=== PATIENT | male | born 1970 | race Caucasian/White ===

== ENCOUNTER → 2017-04-07 | Outpatient (CLI) | payer OTHER, MEDICAID ==
[~2017-04-07] MED LIST: ACETAMINOPHEN325 M1 PO; ALBUTEROL NEB INH; ALBUTEROL2.5 MG/31 INH; ALLEGRA180 MG PO; AMANTADINE100 M1 PO; AMARYL2 MG PO; ARMOUR THYROID30 M1 PO; ARMOUR THYROID60 M1 PO; ASPIRIN EC81 M1 PO; ASPIRIN325; BACTRIM DS TAB1 EACH PO; BENADRYL25 MG PO; BENTYL10 MG PO; BENTYL20 MG PO; BENZTROPINE ME0.5 MG PO; CALCIUM 500 +1 EAC5 PO; CLARITIN10 M2 PO; CLARITIN10 MG PO; CLONAZEPAM 0.50.5 M1 PO; CO Q10200 MG PO; COMBIVENT INH; CORTISPORIN OTI10 M2 OT; COZAAR 25MG TAB25 M1 PO; COZAAR 50 MG TA50 M1 PO; COZAAR100 MG PO; DEPAKOTE 250MG250 M1 PO; DEPAKOTE ER500 MG PO; DEPAKOTE500 MG PO; ETODOLAC 400 M400 MG; FISH OIL 1,0001 EAC5 PO; FLEXERIL PO; FLONASE 0.05%50 MCG NASAL; FOLBIC RF TABL1 EACH PO; HUMALOG100 UNIT/1 SUBQ; HUMULIN R100 UNIT/M SUBQ; HYDROCODON-ACE1 EAC7 PO; HYDROCODONE-AP1 EAC6 PO; KEFLEX500 MG PO; LANTUS SUBQ; LANTUS100 UNIT/M SUBQ; LASIX 80 MG TAB80 MG PO; LATUDA80 MG; LEVAQUIN 500 M500 M2 PO; LEVEMIR SQ; LEVOTHYROXIN0.025 MG; LIPITOR10 MG PO; LISINOPRIL10 MG PO; LIVALO2 MG PO; LOVASTATIN; LOXAPINE10 MG PO; MAGNESIUM400 MG PO; METFORMIN 500500 MG PO; MIRALAX17 GM PO; MIRALAX255 GM PO; NEURONTIN 300300 M1 PO; NORCO 5-325 TA1 EAC1 PO; NORCO 5-325 TA1 EACH PO; NOVOLOG100 UNIT/1 SUBQ; OMEPRAZOLE20 MG PO; OSTERA TABLET1 EACH PO; PERCOCET 5-3251 EACH PO; PHENERGAN 25 MG25 M1 PO; POTASSIUM PO; POTASSIUM20 PO; PREDNISONE50 MG PO; PRILOSEC 20 MG20 MG PO; PROAIR HFA8.5 GM IH; PROAIR HFA8.5 GM INH; PROMS25 WY RECTAL; RISPERDAL 1 MG T1 MG PO; SYNTHROID25 MCG PO; TRAMADOL 50 MG50 MG PO; TRANSDERM-SCO1 PATC1 TD; TRICOR145 MG PO; ULTRACET TABLE1 EACH PO; ULTRAM 50MG TAB50 MG PO; VICODIN 5-5001 EACH PO; VITAMIN D2000 UNI1 PO; XANAX 0.25 MG0.25 MG PO; ZANTAC 150MG T150 MG PO; ZOFRAN ODT4 MG PO; ZYRTEC10 MG; symmetrel PO
== END ==
LOC: M.ULTRA 11:30
DX: M79.661 Pain in right lower leg (principal); M79.89 Other specified soft tissue disorders

== ENCOUNTER 2017-10-05 15:43 | Emergency (ER) | payer OTHER, MEDICAID ==
[~2017-10-05] VITALS: Ht 182.9 cm; Wt 136.1 kg
[2017-10-05 17:27] VITALS: BP 129/80
== END 2017-10-05 17:27 | disposition home or self-care (01) ==
LOC: M.ERS 15:43
DX: S61.011A Laceration without foreign body of right thumb without damage to nail, initial encounter (principal); K21.9 Gastro-esophageal reflux disease without esophagitis; I10 Essential (primary) hypertension; E11.9 Type 2 diabetes mellitus without complications; E78.5 Hyperlipidemia, unspecified; E03.9 Hypothyroidism, unspecified; F41.9 Anxiety disorder, unspecified; F31.9 Bipolar disorder, unspecified; Z79.4 Long term (current) use of insulin; Z91.041 Radiographic dye allergy status; Z91.040 Latex allergy status; Z88.5 Allergy status to narcotic agent; Z88.8 Allergy status to other drugs, medicaments and biological substances; Z88.6 Allergy status to analgesic agent; W26.8XXA Contact with other sharp object(s), not elsewhere classified, initial encounter; Y93.89 Activity, other specified; Y92.89 Other specified places as the place of occurrence of the external cause; Y99.8 Other external cause status

== ENCOUNTER 2018-05-12 07:10 | Inpatient (IN) | payer OTHER, MEDICAID ==
[~2018-05-12] VITALS: Ht 182.9 cm; Wt 127.5 kg
--- NOTE | ~2018-05-12 | CON ---
[address] [address] CONSULTATION Name: SEVERO CANO Room: [address] IN M.R.#: [id number] Admission: 05/12/18 Attend Phys: Ole Foote MD Discharge: Date of : 70 Report #: [id number] THIS REPORT FOR: //name// CC: Ole Joseph TYPE OF REPORT: Inpatient consultation. PRIMARY CARE PHYSICIAN: Braxton Bagley M.D. and Dony Joseph M.D. CHIEF COMPLAINT: Sharp chest pain. HISTORY OF PRESENT ILLNESS: The patient is a 48-year-old man with no documented history of coronary artery disease, had a sharp chest, shoulder and abdominal pain. It occurred this morning. He presented to the Emergency Room and his ECG showed a sinus rhythm with normal ST segments. By the time I had seen him from the Emergency Room to our Telemetry Unit, he is not having any symptoms currently. He denies new shortness of breath. He has a history of diastolic heart failure, but this is currently well compensated. He actually had his Lasix dose reduced from 160 to 80 mg once daily per Dr. Bagley, not quite a month ago. With this his fluid management has been fairly stable. He denies noncompliance with his medications. He is really not any more short of breath than baseline. He denies fevers, chills or cough. He denies neck or shoulder discomfort. PAST MEDICAL HISTORY: Significant for the following: He has a history of chronic diastolic heart failure. He had a negative stress echo demonstrating grossly normal LV systolic function in 2016 and this was a dobutamine study. He has a history of remote cardiac catheterization in 2004, which showed minimal coronary disease and normal LV function. He has a history of the following medical problems, bipolar disorder, diabetes mellitus, hypertension, chronic diastolic heart failure, hyperlipidemia and hypothyroidism. PAST SURGICAL HISTORY: Prior cholecystectomy. MEDICATIONS: Depakote 500 mg 3 per day, Zetia 10 mg daily, Lasix 80 mg daily, Humulin insulin, loratadine, olmesartan 40 mg daily and potassium chloride [address] [place] [address] CONSULTATION Name: SEVERO CANO Room: [address] IN [facility]#: [id number] Admission: 05/12/18 Attend Phys: Ole Foote MD Discharge: Date of : 70 Report #: [id number] mEq daily. REVIEW OF SYSTEMS: GASTROINTESTINAL: Positive abdominal cramping and bloating. NEUROLOGICAL: No seizures or headaches. EYES: Denies any blurred vision or loss of vision. THROAT: Denies any dysphagia. HEMATOLOGIC: No anemia or bleeding disorders. RENAL: No history of kidney failure. CARDIOVASCULAR: Positive chest pain. No shortness of breath. No orthopnea. No PND. Positive chronic this is well controlled. GENERAL: No weight loss. No weight gain. SKIN: No rashes. SOCIAL HISTORY: Single. There is no tobacco or ethanol history. FAMILY HISTORY: Noncontributory. PHYSICAL EXAMINATION: VITAL SIGNS: Blood pressure is 96/53, pulse is 72, respiratory rate 16 and O2 sats 100%. GENERAL: This is an obese, unkempt, middle-aged male. He is alert, in no apparent distress. HEENT: Eyes, EOMs intact. No facial asymmetry. NECK: Supple. No jugular venous distention. Neck veins are flat. CARDIOVASCULAR: Regular, I cannot hear a murmur or S3. LUNGS: Clear to auscultation. ABDOMEN: Soft, nontender and nondistended. EXTREMITIES: There is no peripheral edema. LABORATORY DATA: Hemoglobin is 14.1; white blood cell count 7 and platelet count 193,000. Sodium is 135, potassium 4.4, chloride is 100, CO2 is 27, BUN is 34 and creatinine is 1.2. Troponin-I is 0.06. IMPRESSION AND RECOMMENDATIONS: 1. Atypical chest pain. He is ruling out for an acute myocardial infarction. His symptoms also could be related to a gastrointestinal issue. I will continue with telemetry monitoring and cycle a troponin level. He may need another stress test as it has been 2 years since his last evaluation and because of his body size, a Lexiscan stress test would be recommended. 2. Hypertension. This is stable. 3. Chronic diastolic heart failure. I [place] [address] CONSULTATION Name: SEVERO CANO Room: [address] IN [facility].#: [id number] Admission: 05/12/18 Attend Phys: Ole Foote MD Discharge: Date of : 70 Report #: [id number] Lasix. 4. Diabetes mellitus. By: 1124 [id number] Hospit[facility] Guadalupe MD, FACC /nt
[~2018-05-12 07:10] MED LIST changes: -LEVOTHYROXIN0.025 MG; +SYNTHROID25 MC1 PO
[2018-05-12] MEDS ORDERED: LASIX 80 MG TAB80 MG PO (07:15)
[2018-05-12] MEDS ORDERED: TOPROL XL50 MG PO (07:15)
[2018-05-12 07:38] LABS: ABSOLUTE BASOPHILS 0.1 thou/uL (0.0-0.2); ABSOLUTE EOSINOPHILS 0.2 thou/uL (0.0-0.7); ABSOLUTE LYMPHOCYTES 3.1 thou/uL (0.8-5.3); ABSOLUTE MONOCYTES 0.6 thou/uL (0.0-1.2); BASOPHILS 0.7 %; EOSINOPHILS 2.8 %; HEMATOCRIT 40.4 % (42.0-52.0); HEMOGLOBIN 14.1 gm/dL (14.0-18.0); LYMPHOCYTES 44.8 %; MCH 30.7 pg (26.0-34.0); MCHC 34.8 g/dL (28.0-37.0); MCV 88.3 fL (80.0-100.0); MONOCYTES 8.8 %; MPV 8.8 fl. (7.2-11.1); NUCLEATED RBCS 0 /100WBC; PLATELET COUNT* 193 thou/uL (150-400); POLYS 42.9 %; RBC 4.57 mil/uL (4.50-6.00); RDW-CV 13.7 % (10.5-14.5)
[2018-05-12 08:07] LABS: ALBUMIN 3.4 g/dL (3.4-5.0); ALKALINE PHOSPHATASE 107 U/L (46-116); ANION GAP 8 mmol/L (7-16); BUN 34 mg/dL (7-18); CALCIUM 9.9 mg/dL (8.5-10.1); CHLORIDE 100 mmol/L (98-107); CO2 27 mmol/L (21-32); CREATININE 1.2 mg/dL (0.6-1.3); GLUCOSE 266 mg/dL (70-99); LIPASE 354 U/L (73-393); MAGNESIUM 1.8 mg/dL (1.8-2.4); NT-PRO BRAIN NAT PEPTIDE 33 pg/mL (<300); POTASSIUM 4.4 mmol/L (3.5-5.1); SGOT 28 U/L (15-37); SGPT 40 U/L (30-65); SODIUM 135 mmol/L (136-145); TOTAL BILIRUBIN 0.3 mg/dL (<0.1-1.0); TOTAL PROTEIN 7.6 g/dL (6.4-8.2); TROPONIN-I LEVEL <0.06 ng/mL (<0.06)
[2018-05-12 10:08] VITALS: BP 96/53
[2018-05-12] MEDS ORDERED: OLMESARTAN MEDO40 MG PO (12:00)
[2018-05-12] MEDS ORDERED: ASPIRIN325 PO (12:00)
--- NOTE | 2018-05-12 12:02 | EKG ---
[place] [address] ELECTROCARDIOGRAM REPORT Name: SEVERO CANO Room: [address] ADM IN .R.#: [id number] Admission: 05/12/18 Attend Phys: Ole Foote MD Discharge: Date of : 70 Report #: [id number] THIS REPORT FOR: //name// [facility] ED Test Date: 2018-05-12 Test Time: 07:12:40 Pat Name: SEVERO CANO Department: Room: [facility] Gender: M Refractory Grinder Operator: Rashaad SANCHES RN : 1970 Requested By: Damon Oliveros Order Number: [id number] MD: Adam Guadalupe Measurements Intervals [place] Rate: 73 P: 24 [place]: 152 QRS: 10 QRSD: 94 T: 34 QT: 378 QTc: 417 Interpretive Statements Sinus rhythm Compared to ECG 01/03/2017 18:34:05 Sinus tachycardia no longer present Electronically Signed On 05-12-2018 12:02:06 ON AWAKE COUNSELOR by Adam Guadalupe [email or web address] <ELECTRONICALLY SIGNED> By: Adam Guadalupe MD, FACC 05/12/18 1202 1 1 Adam Guadalupe MD, [facility] /EPI
[2018-05-12 12:17] VITALS: BP 116/57
[2018-05-12] MEDS ORDERED: NOVOLIN R100 UNIT/1 SUBQ (13:07)
[2018-05-12 20:10] VITALS: BP 105/58
[2018-05-13] VITALS: BP 93/56
[2018-05-13 04:00] VITALS: BP 112/69
[2018-05-13 08:00] VITALS: BP 151/86
[2018-05-13 11:30] VITALS: BP 111/46
[2018-05-13 15:26] VITALS: BP 92/56
[2018-05-13 19:40] VITALS: BP 105/70
[2018-05-14] VITALS: BP 95/61
[2018-05-14 04:00] VITALS: BP 80/42
[2018-05-14 04:53] LABS: ABSOLUTE EOSINOPHILS 0.3 thou/uL (0.0-0.7); ABSOLUTE LYMPHOCYTES 3.6 thou/uL (0.8-5.3); ABSOLUTE MONOCYTES 0.6 thou/uL (0.0-1.2); ABSOLUTE NEUTROPHILS 3.3 thou/uL (1.6-8.1); BASOPHILS 0.6 %; EOSINOPHILS 3.5 %; HEMATOCRIT 40.3 % (42.0-52.0); HEMOGLOBIN 13.9 gm/dL (14.0-18.0); LYMPHOCYTES 45.5 %; MCH 30.8 pg (26.0-34.0); MCHC 34.6 g/dL (28.0-37.0); MCV 89.1 fL (80.0-100.0); MONOCYTES 7.8 %; MPV 9.2 fl. (7.2-11.1); NUCLEATED RBCS 0 /100WBC; PLATELET COUNT* 183 thou/uL (150-400); POLYS 42.6 %; RBC 4.52 mil/uL (4.50-6.00); RDW-CV 13.6 % (10.5-14.5); WBC 7.9 thou/uL (4.0-11.0)
[2018-05-14 05:56] LABS: CALCIUM 9.2 mg/dL (8.5-10.1); CREATININE 1.2 mg/dL (0.6-1.3); POTASSIUM 4.4 mmol/L (3.5-5.1)
[2018-05-14 08:00] VITALS: BP 102/61
[2018-05-14 12:00] VITALS: BP 101/62
[2018-05-14 12:03] VITALS: BP 102/61
== END 2018-05-14 18:05 | disposition home or self-care (01) | DRG 206 ==
LOC: M.ERS 07:10 → M.2W 08:38 → M.TBA-ER 08:38 → M.2W 10:21
PROVIDERS: Emergency Medicine Emergency Medical Services; ADMIT Internal Medicine
DX: M94.0 Chondrocostal junction syndrome [Tietze] (principal); I50.32 Chronic diastolic (congestive) heart failure; E66.01 Morbid (severe) obesity due to excess calories; E78.00 Pure hypercholesterolemia, unspecified; E11.9 Type 2 diabetes mellitus without complications; E03.9 Hypothyroidism, unspecified; F31.9 Bipolar disorder, unspecified; F41.9 Anxiety disorder, unspecified; K21.9 Gastro-esophageal reflux disease without esophagitis; I25.10 Atherosclerotic heart disease of native coronary artery without angina pectoris; I11.0 Hypertensive heart disease with heart failure; Z68.38 Body mass index [BMI] 38.0-38.9, adult; Z87.828 Personal history of other (healed) physical injury and trauma; Z79.4 Long term (current) use of insulin; Z79.82 Long term (current) use of aspirin; Z79.899 Other long term (current) drug therapy; Z88.8 Allergy status to other drugs, medicaments and biological substances; Z91.041 Radiographic dye allergy status; Z91.040 Latex allergy status

== ENCOUNTER → 2018-06-06 | Outpatient (CLI) | payer OTHER, MEDICAID ==
[~2018-06-06] MED LIST changes: +ASPIRIN325 PO; +NOVOLIN R100 UNIT/1 SUBQ; +OLMESARTAN MEDO40 MG PO; +TOPROL XL50 MG PO
--- NOTE | 2018-06-20 21:51 | SLEEP ---
[address] [address] SLEEP STUDY REPORT Name: SEVERO CANO Room: [facility]#: [id number] Admission: 06/06/18 Attend Phys: Ana Luisa Redmond Discharge: Date of : 70 Report #: [id number] THIS REPORT FOR: //name// CC: Ana Luisa Joseph This study has been reviewed in its entirety by a board certified sleep specialist DATE OF SERVICE: 06/08/2018 ATTENDING PROVIDER: Ana Luisa Redmond NP The patient is a 48-year-old who weighs 325 pounds with a BMI of 44.1. The patient's [place] score was 11. The patient underwent home sleep study performed at [facility]. Total recording time was 293 minutes. During the night study, the patient had 8 central apneas, 6 obstructive apneas, no mixed apneas and 54 hypopneas. The patient's apnea-hypopnea index was 14.2 per hour. Nocturnal oximetry study revealed an average oxygen saturation of 92%, with the lowest of 72%. A 19 minutes were spent at an oxygen saturation of less than 90%. Mean heart rate was not recorded. IMPRESSION: 1. Mild sleep apnea-hypopnea syndrome at an apnea-hypopnea index of 14.2 per hour. 2. Nocturnal hypoxia secondary to obstructive sleep apnea. RECOMMENDATIONS: 1. The patient is clinically symptomatic and would benefit from treatment of sleep apnea with either an oral appliance as recommended by the dentist versus a trial of CPAP titration. 2. Once the patient is optimally treated, then follow up in 4-6 weeks to assess compliance and to document clinical improvement. 3. Weight loss is strongly advised. 4. Avoid [place] [address] SLEEP STUDY REPORT Name: SEVERO CANO Room: [facility]#: [id number] Admission: 06/06/18 Attend Phys: Ana Luisa Redmond Discharge: Date of : 70 Report #: [id number] 5. Cautioned regarding driving until symptoms of sleep apnea have resolved with above recommendations. <ELECTRONICALLY SIGNED> By: Salvador Barker MD 06/20/18 2151 1522 1737Akip Barker MD /susana
== END ==
LOC: M.CRD 09:00 → M.SLEEPLAB 09:00
DX: G47.33 Obstructive sleep apnea (adult) (pediatric) (principal); R09.02 Hypoxemia; R06.09 Other forms of dyspnea; E66.01 Morbid (severe) obesity due to excess calories

== ENCOUNTER → 2018-07-05 | Outpatient (CLI) | payer OTHER, MEDICAID ==
[2018-07-05 12:04] VITALS: BP 97/67
--- NOTE | 2018-07-13 09:28 | CARD ---
[address] [address] CARDIAC CATH REPORT Name: SEVERO CANO [id number] Admission: 07/05/18 Attend Phys: Braxton Bagley MD Discharge: Date of : 70 Report #: [id number] THIS REPORT FOR: //name// CC: Braxton Joseph INDICATION: Cardiac arrhythmia. PROCEDURE: Implantable loop recorder placement. DESCRIPTION OF PROCEDURE: After informed consent was obtained, the patient was brought to the cardiac holding area. The area of the chest was prepped and draped in sterile fashion. Local anesthesia was achieved with 1% lidocaine. The area of the fourth intercostal space on the left was anesthetized. A small incision was made just adjacent to the sternum. The area for implant was predilated with the dilator. Ultimately, a [employer]able NetworksroniGOQii BioMonitor 2-AF, model #[id number], serial #[id number] was placed without difficulty. The incision was then closed with 2-0 Vicryl suture. The patient tolerated the procedure well and without complication. The sensed R waves were 2 millivolts. IMPRESSION: 1. Cardiac arrhythmia with possible atrial fibrillation. 2. Successful implantation of BioMonitor 2-AF implantable loop recorder. <ELECTRONICALLY SIGNED> By: Braxton Bagley MD, [facility] 07/13/18 0928 0911 0008[facility] Centertien Bagley MD, EVANGELISTA /nt
== END | disposition home or self-care (01) ==
LOC: M.CL 11:31
DX: I49.9 Cardiac arrhythmia, unspecified (principal); I11.0 Hypertensive heart disease with heart failure; I50.32 Chronic diastolic (congestive) heart failure; E11.9 Type 2 diabetes mellitus without complications; E78.5 Hyperlipidemia, unspecified; E03.9 Hypothyroidism, unspecified; F31.9 Bipolar disorder, unspecified; Z86.73 Personal history of transient ischemic attack (TIA), and cerebral infarction without residual deficits; Z88.8 Allergy status to other drugs, medicaments and biological substances; Z79.899 Other long term (current) drug therapy; Z90.49 Acquired absence of other specified parts of digestive tract; Z91.040 Latex allergy status; Z79.82 Long term (current) use of aspirin; Z79.4 Long term (current) use of insulin; Z98.890 Other specified postprocedural states; Z82.49 Family history of ischemic heart disease and other diseases of the circulatory system; Z83.3 Family history of diabetes mellitus; Z79.01 Long term (current) use of anticoagulants

== ENCOUNTER 2018-10-30 15:53 | Inpatient (IN) | payer OTHER, MEDICAID ==
[~2018-10-30] VITALS: Ht 182.9 cm; Wt 128.4 kg
[~2018-10-30 15:53] MED LIST changes: -VITAMIN D2000 UNI1 PO; +VITAMIN D2000 UNIT PO
[2018-10-30 16:01] VITALS: BP 124/73
[2018-10-30] MEDS ORDERED: ELIQUIS5 MG PO (16:06)
[2018-10-30 16:21] LABS: ABSOLUTE BASOPHILS 0.1 thou/uL (0.0-0.2); ABSOLUTE EOSINOPHILS 0.1 thou/uL (0.0-0.7); ABSOLUTE LYMPHOCYTES 3.3 thou/uL (0.8-5.3); ABSOLUTE MONOCYTES 0.5 thou/uL (0.0-1.2); ABSOLUTE NEUTROPHILS 5.3 thou/uL (1.6-8.1); BASOPHILS 1.1 %; EOSINOPHILS 1.3 %; HEMATOCRIT 45.9 % (42.0-52.0); HEMOGLOBIN 15.9 gm/dL (14.0-18.0); MCH 30.9 pg (26.0-34.0); MCHC 34.6 g/dL (28.0-37.0); MCV 89.2 fL (80.0-100.0); MONOCYTES 5.8 %; NUCLEATED RBCS 0 /100WBC; PLATELET COUNT* 203 thou/uL (150-400); POLYS 56.8 %; RBC 5.14 mil/uL (4.50-6.00); RDW-CV 13.8 % (10.5-14.5); WBC 9.3 thou/uL (4.0-11.0)
[2018-10-30 16:22] LABS: ANION GAP 10 mmol/L (7-16); BUN 14 mg/dL (7-18); CALCIUM 9.1 mg/dL (8.5-10.1); CHLORIDE 92 mmol/L (98-107); CO2 30 mmol/L (21-32); CREATININE 1.2 mg/dL (0.6-1.3); GLUCOSE 396 mg/dL (70-99); POTASSIUM 3.5 mmol/L (3.5-5.1); SODIUM 132 mmol/L (136-145)
[2018-10-30 16:32] LABS: APTT 26.6 Seconds (25.0-31.3); PROTIME 10.3 Seconds (9.20-11.50)
[2018-10-30 16:35] LABS: ALKALINE PHOSPHATASE 115 U/L (46-116); LIPASE 240 U/L (73-393); MAGNESIUM 1.7 mg/dL (1.8-2.4); NT-PRO BRAIN NAT PEPTIDE 16 pg/mL (<300); SGOT 41 U/L (15-37); SGPT 60 U/L (30-65); TOTAL BILIRUBIN 0.4 mg/dL (<0.1-1.0); TOTAL PROTEIN 8.5 g/dL (6.4-8.2); TROPONIN-I LEVEL <0.06 ng/mL (<0.06)
[2018-10-30 18:15] VITALS: BP 112/70
[2018-10-30 18:30] VITALS: BP 121/69
[2018-10-30 20:10] VITALS: BP 112/67
[2018-10-31] VITALS (15 sets, daily range): BP systolic 102–132; BP diastolic 54–93
[2018-10-31 05:20] LABS: HEMATOCRIT 42.2 % (42.0-52.0); HEMOGLOBIN 14.2 gm/dL (14.0-18.0); MCHC 33.6 g/dL (28.0-37.0); MCV 89.4 fL (80.0-100.0); MPV 8.9 fl. (7.2-11.1); RBC 4.72 mil/uL (4.50-6.00); WBC 7.4 thou/uL (4.0-11.0)
[2018-10-31 05:38] LABS: POTASSIUM 3.3 mmol/L (3.5-5.1)
[2018-10-31] MEDS ORDERED: FLECAINIDE ACET50 M1 PO (07:07)
[2018-10-31] MEDS ORDERED: SINGULAIR 10 MG10 M1 PO (07:07)
--- NOTE | 2018-10-31 11:03 | EKG ---
[place] [address] ELECTROCARDIOGRAM REPORT Name: SEVERO CANO Room: [address] ADM IN .R.#: [id number] Admission: 10/30/18 Attend Phys: Jannette Kingsley Discharge: Date of : 70 Report #: [id number] THIS REPORT FOR: //name// [facility] ED Test Date: 2018-10-30 Test Time: 15:57:28 Pat Name: SEVERO CANO Department: Room: [facility] Gender: M Rubber Insulator: BRAD : 1970 Requested By: Stoney Fuentes Order Number: [id number] MD: Joey Jiang Measurements Intervals [place] Rate: 106 P: 24 [place]: 151 QRS: -6 QRSD: 167 T: 152 QT: 394 QTc: 524 Interpretive Statements Sinus tachycardia Left bundle branch block Baseline wander in lead(s) V1 Compared to ECG 05/12/2018 07:12:40 Left bundle-branch block now present Sinus rhythm no longer present Electronically Signed On 10-31-2018 11:03:42 CDT by Joey Jiang [email or web address] <ELECTRONICALLY SIGNED> By: Joey Jiang MD, [facility] 10/31/18 1103 1557 1557 Joey Jiang MD, [facility] /EPI
--- NOTE | 2018-10-31 14:36 | EKG ---
[place] [address] ELECTROCARDIOGRAM REPORT Name: SEVERO CANO Room: [address] ADM IN M.R.#: [id number] Admission: 10/30/18 Attend Phys: Jannette Kingsley Discharge: Date of : 70 Report #: [id number] THIS REPORT FOR: //name// [facility] Test Date: 2018-10-31 Test Time: 13:23:56 Pat Name: SEVERO CANO Department: Room: [address] Gender: M Epic Specialist: : 1970 Requested By: Tho Burns Order Number: [id number] Katrina MD: Joey Jiang Measurements Intervals [place] Rate: 77 P: 33 [place]: 171 QRS: 35 QRSD: 104 T: 38 QT: 401 QTc: 454 Interpretive Statements Sinus rhythm Compared to ECG 10/30/2018 15:57:28 Sinus tachycardia no longer present Left bundle-branch block no longer present Electronically Signed On 10-31-2018 14:36:34 CDT by Joey Jiang [email or web address] <ELECTRONICALLY SIGNED> By: Joey Jiang MD, [facility] 10/31/18 1436 1323 1323 Joey Jiang MD, [facility] /EPI
--- NOTE | 2018-10-31 17:12 | CARD ---
[address] [address] CARDIAC CATH REPORT Name: SEVERO CANO Room: [address] IN [facility]#: [id number] Admission: 10/30/18 Attend Phys: Jannette Kingsley Discharge: Date of : 70 Report #: [id number] THIS REPORT FOR: //name// APPROVED REPORT Study performed: 10/31/2018 09:18:13 Patient Details Patient Status: In-Patient Room #: The patient is a 48 year-old male Event Personnel Joey Jiang Web Application Dev Specialist, Zulema Shea RN RN, Gary Davis ELECTRONICS [employer]S SALES REPRESENTATIVE Monitor, Fina France RTR Scrub Indication Palpitations, Dyspnea, Chest pain Risk Factors Hypertension Procedure Narrative The patient was brought electively to the Cardiac Catheterization Laboratory and was prepped and draped in a sterile manner. The right wrist was infiltrated with 1% Lidocaine subcutaneous anesthesia. A Slender Glidesheath sheath was inserted into the right radial artery. Coronary angiography was performed using coronary diagnostic catheters. The right coronary system was accessed and visualized with a Diagnostic- JR4 catheter. The left coronary system was accessed and visualized with a Diagnostic-JL4 catheter. The left ventricle was accessed and visualized with a Diagnostic-Ang Pig catheter. Left ventricular/Aortic Valve gradient assessed via catheter pullback. Left ventriculogram was performed in [place] projection. Closure device was deployed with a 6 Fr Vasc-Band Lng 27cm. The patient tolerated the procedure well and there were no complications associated with the procedure. There was no hematoma. Intraoperative Conscious Sedation Sedation start time: 1014 Case end Time: 1040 Fentanyl 25 mcg Versed 2 mg Fluoro Time: 3.9 minutes Dose: DAP 55551 cGycm2 1074 mGy Contrast Type and Amount: Omnipaque [address] [place] [address] CARDIAC CATH REPORT Name: SEVERO CANO Room: [address] IN [facility]#: [id number] Admission: 10/30/18 Attend Phys: Jannette Kingsley Discharge: Date of : 70 Report #: [id number] Coronary Angiography The patient's coronary anatomy is right dominant. [place] Artery Percent Stenosis Left Main: 0 % Prox LAD: 0 % Mid/Distal LAD: 0 % Circumflex: 0 % RCA: 0 % Ramus: 0 % Left Ventriculography The left ventricle is normal in size with normal contractility. The left ventricular ejection fraction is estimated to be 50-55%. Left ventricular wall motion abnormalities are not present. There is no mitral insufficiency. Hemodynamics The aortic pressure is 95/62 mmHg with a mean of 76 mmHg. The left ventricular pressure is 101/10 mmHg with a mean of mmHg. The left ventricular end diastolic pressure is 14 mmHg. There was no gradient across the aortic valve upon pullback. Pullback from the left ventricle to the aorta revealed no gradient across the aortic valve. Conclusion 1. no CAD 2. LVEF 55% 3 suspect noncardiac chest pain Recommendations Aggressive Medical Therapy <ELECTRONICALLY SIGNED> By: Joey Jiang MD, [facility] 10/31/181711 11 1712Davijannette Jiang MD, FAC /INF
[2018-11-01] VITALS: BP 108/56
[2018-11-01 04:00] VITALS: BP 123/72
[2018-11-01 08:00] VITALS: BP 122/69
[2018-11-01 09:14] VITALS: BP 122/69
[2018-11-01] MEDS ORDERED: OMEPRAZOLE 20 M20 M1 PO (13:00)
[2018-11-01] MEDS ORDERED: PROMS25 WY RECTAL (13:30)
== END 2018-11-01 14:34 | disposition home or self-care (01) | DRG 287 ==
LOC: M.ERS 15:53 → M.TBA-ER 17:01 → M.2W 17:01
PROVIDERS: Family Medicine; ADMIT Internal Medicine
PROC: B2151ZZ Fluoroscopy of Left Heart using Low Osmolar Contrast (ICD-10-PCS; principal; 2018-10-31)
PROC: 4A023N7 Measurement of Cardiac Sampling and Pressure, Left Heart, Percutaneous Approach (ICD-10-PCS; principal; 2018-10-31)
PROC: B2111ZZ Fluoroscopy of Multiple Coronary Arteries using Low Osmolar Contrast (ICD-10-PCS; principal; 2018-10-31)
DX: I44.7 Left bundle-branch block, unspecified (principal); I50.9 Heart failure, unspecified; F41.9 Anxiety disorder, unspecified; K21.9 Gastro-esophageal reflux disease without esophagitis; F31.9 Bipolar disorder, unspecified; E03.9 Hypothyroidism, unspecified; E11.65 Type 2 diabetes mellitus with hyperglycemia; E66.01 Morbid (severe) obesity due to excess calories; I11.0 Hypertensive heart disease with heart failure; I48.91 Unspecified atrial fibrillation; Z88.8 Allergy status to other drugs, medicaments and biological substances; Z68.38 Body mass index [BMI] 38.0-38.9, adult; Z88.6 Allergy status to analgesic agent; Z88.1 Allergy status to other antibiotic agents; Z91.041 Radiographic dye allergy status; Z91.040 Latex allergy status

== ENCOUNTER 2019-02-21 09:48 | Emergency (ER) | payer OTHER, MEDICAID ==
[~2019-02-21] VITALS: Ht 182.9 cm; Wt 117.9 kg
[~2019-02-21 09:48] MED LIST changes: +ELIQUIS5 MG PO; +FLECAINIDE ACET50 M1 PO; +OMEPRAZOLE 20 M20 M1 PO; +SINGULAIR 10 MG10 M1 PO
[2019-02-21 10:31] LABS: ABSOLUTE EOSINOPHILS 0.1 thou/uL (0.0-0.7); ABSOLUTE LYMPHOCYTES 3.1 thou/uL (0.8-5.3); ABSOLUTE MONOCYTES 0.4 thou/uL (0.0-1.2); ABSOLUTE NEUTROPHILS 3.3 thou/uL (1.6-8.1); BASOPHILS 0.7 %; EOSINOPHILS 2.1 %; HEMOGLOBIN 15.6 gm/dL (14.0-18.0); LYMPHOCYTES 44.2 %; MCH 29.6 pg (26.0-34.0); MCHC 34.6 g/dL (28.0-37.0); MCV 85.6 fL (80.0-100.0); MONOCYTES 5.4 %; MPV 10.1 fl. (7.2-11.1); NUCLEATED RBCS 0 /100WBC; PLATELET COUNT* 199 thou/uL (150-400); POLYS 47.6 %; RBC 5.26 mil/uL (4.50-6.00); RDW-CV 13.6 % (10.5-14.5)
[2019-02-21 10:35] LABS: URINE BILIRUBIN NEGATIVE (Negative); URINE BLOOD NEGATIVE (Negative); URINE CLARITY CLEAR; URINE COLOR YELLOW; URINE GLUCOSE-RANDOM 3+ (Negative); URINE KETONES 1+ (Negative); URINE LEUKOCYTES-REFLEX NEGATIVE (Negative); URINE NITRITE-REFLEX NEGATIVE (Negative); URINE PROTEIN NEGATIVE (Negative); URINE SPECIFIC GRAVITY 1.015 (1.005-1.030); URINE UROBILINOGEN 0.2 E.U./dl (0.2-1.0)
[2019-02-21 10:39] LABS: CALCIUM 9.6 mg/dL (8.5-10.1); CREATININE 1.1 mg/dL (0.6-1.3); POTASSIUM 4.1 mmol/L (3.5-5.1)
[2019-02-21 10:42] LABS: PROTIME 10.1 Seconds (9.20-11.50)
[2019-02-21 10:54] LABS: ALBUMIN 3.7 g/dL (3.4-5.0); TOTAL BILIRUBIN 0.4 mg/dL (<0.1-1.0); TOTAL PROTEIN 8.2 g/dL (6.4-8.2)
[2019-02-21 11:34] VITALS: BP 109/82
--- NOTE | 2019-02-21 15:21 | EKG ---
[place] [address] ELECTROCARDIOGRAM REPORT Name: SEVERO CANO Room: [facility]#: [id number] Admission: 02/21/19 Attend Phys: Discharge: 02/21/19 Date of : 70 Report #: [id number] THIS REPORT FOR: //name// [facility] ED Test Date: 2019-02-21 Test Time: 10:19:30 Pat Name: SEVERO CANO Department: Room: Gender: M Clinical Education Manager: : 1970 Requested By: Gilbert Rutherford Order Number: [id number] MD: Joey Jiang Measurements Intervals [place] Rate: 72 P: 54 [place]: 149 QRS: 5 QRSD: 112 T: 42 QT: 390 QTc: 427 Interpretive Statements Sinus rhythm artifact noted late transition Borderline intraventricular conduction delay Compared to ECG 10/31/2018 13:23:56 No significant changes Electronically Signed On 02-21-2019 15:20:52 SAW OFFBEARER by Joey Jiang [email or web address] <ELECTRONICALLY SIGNED> By: Joey Jiang MD, [facility] 02/21/19 1520 1019 1019 Joey Jiang MD, FACC /EPI
== END 2019-02-21 11:34 | disposition home or self-care (01) ==
LOC: M.ERS 09:48
PROVIDERS: Emergency Medicine
DX: E11.65 Type 2 diabetes mellitus with hyperglycemia (principal); I11.0 Hypertensive heart disease with heart failure; I50.9 Heart failure, unspecified; F31.9 Bipolar disorder, unspecified; E03.9 Hypothyroidism, unspecified; K21.9 Gastro-esophageal reflux disease without esophagitis; Z91.040 Latex allergy status; Z88.5 Allergy status to narcotic agent; Z88.1 Allergy status to other antibiotic agents; Z88.6 Allergy status to analgesic agent; Z79.4 Long term (current) use of insulin

== ENCOUNTER 2019-09-23 15:00 | Emergency (ER) | payer OTHER, MEDICAID ==
[~2019-09-23] VITALS: Ht 180.3 cm; Wt 115.7 kg
[2019-09-23] MEDS ORDERED: HUMALOG100 UNIT/1 SUBQ ×2 (15:06→15:07)
[2019-09-23] MEDS ORDERED: TERBINAFINE HC250 MG PO (15:11)
[2019-09-23] MEDS ORDERED: BACTRIM DS TAB1 EAC1 PO (15:12)
[2019-09-23 15:39] LABS: ABSOLUTE BASOPHILS 0.1 thou/uL (0.0-0.2); ABSOLUTE EOSINOPHILS 0.2 thou/uL (0.0-0.7); ABSOLUTE MONOCYTES 0.5 thou/uL (0.0-1.2); ABSOLUTE NEUTROPHILS 4.2 thou/uL (1.6-8.1); BASOPHILS 1.3 %; EOSINOPHILS 2.6 %; HEMATOCRIT 46.5 % (42.0-52.0); HEMOGLOBIN 16.7 gm/dL (14.0-18.0); LYMPHOCYTES 28.8 %; MCH 30.8 pg (26.0-34.0); MCV 85.6 fL (80.0-100.0); MPV 9.5 fl. (7.2-11.1); NUCLEATED RBCS 0 /100WBC; PLATELET COUNT* 194 thou/uL (150-400); POLYS 60.3 %; RBC 5.43 mil/uL (4.50-6.00); RDW-CV 14.1 % (10.5-14.5); WBC 6.9 thou/uL (4.0-11.0)
[2019-09-23 15:47] LABS: CALCIUM 8.5 mg/dL (8.5-10.1); CREATININE 1.1 mg/dL (0.6-1.3); POTASSIUM 3.3 mmol/L (3.5-5.1)
[2019-09-23 15:51] LABS: ALBUMIN 3.8 g/dL (3.4-5.0); MAGNESIUM 1.3 mg/dL (1.8-2.4); TOTAL BILIRUBIN 0.5 mg/dL (<0.1-1.0); TOTAL PROTEIN 7.7 g/dL (6.4-8.2)
[2019-09-23 17:06] LABS: URINE BILIRUBIN NEGATIVE (Negative); URINE BLOOD NEGATIVE (Negative); URINE CLARITY CLEAR; URINE COLOR YELLOW; URINE GLUCOSE-RANDOM 3+ (Negative); URINE KETONES NEGATIVE (Negative); URINE LEUKOCYTES-REFLEX NEGATIVE (Negative); URINE NITRITE-REFLEX NEGATIVE (Negative); URINE PROTEIN NEGATIVE (Negative); URINE SPECIFIC GRAVITY 1.015 (1.005-1.030); URINE UROBILINOGEN 0.2 E.U./dl (0.2-1.0)
[2019-09-23 19:11] VITALS: BP 114/75
--- NOTE | 2019-09-24 12:54 | EKG ---
[place] [address] ELECTROCARDIOGRAM REPORT Name: SEVERO CANO Room: [facility]#: [id number] Admission: 09/23/19 Attend Phys: Discharge: 09/23/19 Date of : 70 Date of Service: 09/23/19 1514 Report #: [id number] THIS REPORT FOR: //name// [facility] ED Test Date: 2019-09-23 Test Time: 15:14:16 Pat Name: SEVERO CANO Department: Room: Gender: Statistical Modeler: BRAD : 1970 Requested By: Graciela Horvath Order Number: [id number] MD: Joey Jiang Measurements Intervals [place] Rate: 84 P: 22 [place]: 152 QRS: -5 QRSD: 102 T: 45 QT: 374 QTc: 443 Interpretive Statements Sinus rhythm late transition Compared to ECG 02/21/2019 10:19:30 No significant changes Electronically Signed On 09-24-2019 12:54:37 CDT by Joey Jiang [email or web address] <ELECTRONICALLY SIGNED> By: Joey Jiang MD, [facility] 09/24/19 1254 1514 1514 Joey Jiang MD, [facility] /EPI
== END 2019-09-23 19:12 | disposition home or self-care (01) ==
LOC: M.ERS 15:00
PROVIDERS: Personal Emergency Response Attendant
DX: E11.65 Type 2 diabetes mellitus with hyperglycemia (principal); I11.0 Hypertensive heart disease with heart failure; I50.9 Heart failure, unspecified; E11.9 Type 2 diabetes mellitus without complications; E03.9 Hypothyroidism, unspecified; K21.9 Gastro-esophageal reflux disease without esophagitis; F31.9 Bipolar disorder, unspecified; F41.9 Anxiety disorder, unspecified; Z91.040 Latex allergy status; Z88.6 Allergy status to analgesic agent; Z88.8 Allergy status to other drugs, medicaments and biological substances